=== PATIENT | male | born 1940 | race Hispanic/Latino ===

== ENCOUNTER 2018-07-06 22:15 | Observation (INO) | payer MEDICARE ==
[2018-07-06 22:32] VITALS: BMI 18.8
[2018-07-06 23:50] LABS: BASO # 0.04 K/mm3 (0.0-2.0); BASO % 0.5 % (0.0-3.0); EOS # 0.5 (0.0-0.7); EOS % 6.1 % (1.5-5.0); GRAN # 5.01 (1.4-6.5); GRAN % 66.7 % (50.0-68.0); HEMOGLOBIN 9.8 g/dL (14.0-18.0); LYMPH # 0.7 (1.2-3.4); LYMPH % 9.5 % (22.0-35.0); MEAN CELL VOLUME 85.3 fl (80.0-105.0); MEAN CORPUSCULAR HEMOGLOBIN 27.1 pg (25.0-35.0); MEAN CORPUSCULAR HGB CONC 31.8 g/dl (31.0-37.0); MEAN PLATELET VOLUME 10.2 fl (7.0-11.0); MONO # 1.3 (0.1-0.6); MONO % 17.2 % (1.0-6.0); RBC 3.61 10^6/uL (3.5-6.1); RED CELL DISTRIBUTION WIDTH 16.5 % (11.5-14.5); WHITE BLOOD COUNT 7.5 10^3/ul (4.5-11.0)
--- NOTE | 2018-07-06 23:52 | ED PDOC ---
Arrival/HPI <George Liu - Last Filed: 07/07/18 01:37> - History of Present Illness Time/Duration: 1-3 hours Symptom Onset: Sudden Symptom Course: Improving Context: Standing <Ivan Bauman - Last Filed: 07/07/18 02:38> - General Chief Complaint: Dizziness/Lightheaded Time Seen by Provider: 07/06/18 22:24 - History of Present Illness Narrative History of Present Illness (Text): 07/06/18 23:23 Mr Slater is a 78 male with PMHx significant for stage 4 lung cancer, CAD s/p stents 20 years ago, AFib who presents with sudden onset dizziness. The patient states that around 7pm he took two Dronabinol tablets which he has recently started taking occassionally for appetite stimulation. Shortly thereafter, around 8pm the patient began to feel dizzy and lightheaded while he was standing doing dishes in the kitchen. He denies feeling faint, syncopizing , falling, or memory loss. While these symptoms were occurring, the patient took his BP on a home monitor which was 170/100. He reports his systolic BP typically runs in the 100s-120s. He did take a baby aspirin upon noticing the elevated BP but did not take any blood pressure medications. The patient was brought to ED via EMS and his pressure in the ambulance had returned to baseline. The patient states that his dizziness gradually subsided and no longer feels dizzy or lightheaded, however he does admit to a feeling of widespread weakness. He recently started taking Dronabinol within the last month or so, but usually takes just one tablet at night. He denies feeling dizzy from the medication in the past. He receives weakly immunotherapy treatments at [facility] for lung CA. Pt does also state that he follows with a consulting networking engineer for his AFib and is rate controlled with beta blockers. Patient denies any headache, chest pains, palpitations, syncope, unilateral weakness or sensory loss. (Ivan Bauman) Past Medical History - Provider Review Nursing Documentation Reviewed: Yes - Infectious Disease Hx of Infectious Diseases: None - Cardiac Hx Pacemaker: No - Pulmonary Hx Lung Cancer: Yes (chemo) - Neurological Hx Paralysis: No - Hematological/Oncological Hx Blood Transfusions: No Hx Blood Transfusion Reaction: No - Musculoskeletal/Rheumatological Hx Musculoskeletal Disorders: No - Psychiatric Hx Emotional Abuse: No Hx Physical Abuse: No Hx Substance Use: No - Anesthesia Hx Anesthesia Reactions: No Hx Malignant Hyperthermia: No - Suicidal Assessment Feels Threatened In Home Enviroment: No <Ivan Bauman - Last Filed: 07/07/18 02:38> Family/Social History - Physician Review Nursing Documentation Reviewed: Yes Family/Social History: No Known Family HX Smoking Status: Former Smoker Hx Alcohol Use: Yes (1-2 GLASSES WINE WITH DINNER) Hx Substance Use: No <Ivan Bauman - Last Filed: 07/07/18 02:38> Allergies/Home Meds <George Liu - Last Filed: 07/07/18 01:37> <Ivan Bauman - Last Filed: 07/07/18 02:38> Allergies/Adverse Reactions: Allergies No Known Allergies Allergy (Verified 10/11/16 08:14) Home Medications: Home Meds Medication Instructions Recorded Confirmed Aspirin [Aspir 81] 81 mg PO DAILY 02/20/13 07/06/18 Atorvastatin [Lipitor] 40 mg PO DAILY 02/20/13 07/06/18 Ergocalciferol (Vitamin D2) 2,000 iu PO DAILY 08/17/16 07/06/18 [Vitamin D2] [place]-3/Dha/Epa/Fish Oil [Fish Oil] 1,000 mg PO DAILY 08/17/16 07/06/18 Sotalol [Betapace] 40 mg PO BID 08/17/16 07/06/18 Fluticasone/Vilanterol [Breo 1 each IH DAILY 08/21/16 07/06/18 Ellipta 100-25 Mcg INH] Omeprazole 40 mg PO DAILY 08/21/16 07/06/18 Ondansetron HCl [Zofran] 8 mg PO PRN PRN 10/11/16 07/06/18 Dronabinol [Marinol] 5 mg PO DAILY 07/06/18 07/06/18 Review of Systems - Physician Review All systems were reviewed & negative as marked: Yes - Review of Systems Constitutional: Other (+Appetite loss). absent: Fatigue, Fevers Eyes: absent: Vision Changes, Photophobia ENT: absent: Hearing Changes, Tinnitus Respiratory: absent: SOB, Cough Cardiovascular: absent: Chest Pain, Palpitations Gastrointestinal: absent: Abdominal Pain, Constipation, Diarrhea, Nausea, Vomiting Genitourinary Male: absent: Frequency, Hematuria Skin: absent: Rash, Pruritis Neurological: Dizziness. absent: Headache, Focal Weakness, Speech Changes, Facial Droop Psychiatric: absent: Anxiety, Depression <Ivan Bauman - Last Filed: 07/07/18 02:38> Physical Exam Vital Signs Reviewed: Yes Temperature: Afebrile Blood Pressure: Normal Pulse: Regular Appearance: Positive for: Ill-Appearing, Other (Frail) Pain Distress: None Mental Status: Positive for: Alert and Oriented X 3 - Systems Exam Head: Present: Atraumatic, Normocephalic Pupils: Present: PERRL. No: Sluggish, Non-Reactive, Pinpoint Extroacular Muscles: Present: EOMI Conjunctiva: Present: Normal. No: Injected, Icteric Mouth: Present: Moist Mucous Membranes, Normal Lips, Normal Tounge, Normal Teeth. No: Dry Nose (External): Present: Atraumatic. No: Abrasion, Contusion Neck: Present: Normal Range of Motion. No: JVD Respiratory/Chest: Present: Clear to Auscultation, Good Air Exchange. No: Respiratory Distress, Accessory Muscle Use, Wheezes, Rhonchi Cardiovascular: Present: Regular Rate and Rhythm, Normal S1, S2, Peripheal Pulses Present. No: Murmurs Abdomen: Present: Normal Bowel Sounds. No: Tenderness, Distention, Peritoneal Signs, Rebound, Guarding Upper Extremity: Present: Normal Inspection, NORMAL PULSES. No: Cyanosis, Edema Lower Extremity: Present: Normal Inspection, NORMAL PULSES. No: Edema Neurological: Present: GCS=15, CN II-XII Intact, Speech Normal, Motor Func Grossly Intact, Normal Sensory Function, Normal Cerebellar Funct, Memory Normal , Other (Normal finger to nose) Skin: Present: Pale. No: Diaphoretic, Erythematous, Laceration, Abscess Psychiatric: Present: Alert, Oriented x 3, Normal Insight, Normal Concentration <Ivan Bauman - Last Filed: 07/07/18 02:38> Vital Signs Temp Pulse Resp BP Pulse Ox 07/07/18 02:08 82 18 96 07/07/18 02:02 76 18 126/74 95 07/06/18 22:34 98.0 F 83 18 111/73 99 Medical Decision Making <George Liu - Last Filed: 07/07/18 01:37> - RAD Interpretation Sap Pi Architect: Radiologist - EKG Interpretation Interpreted by ED Physician: Yes <Ivan Bauman - Last Filed: 07/07/18 02:38> ED Course and Treatment: Impression: Pt seen and evaluated with medical records director. Aware and agree with HPI, clinical findings, plan, and management. Pt, whose past medical history includes stage 4 lung cancer, CAD s/p stents, and atrial fibrillation, presented for dizziness/ light-headedness and generalized weakness. Plan: -- CT Head w/o contrast -- EKG -- Chest X-ray -- Labs, cardiac enzymes -- Reassess and disposition 07/07/18 01:[address] Carey, who is aware and agrees with plan. Accepts pt in to his service. Pt will go to Telemetry observation for near-syncope and pneumonia. (George Liu) 1) Dizziness in Stage 4 Lung CA, hx AFib (DDx TIA/stroke vs metastatic dz vs medication SE): * CT Head w/o contrast * CXR * EKG * CBC w dif, CMP, PT/PTT, Cardiac enzymes * Continue clinical reassessment 07/07/18 00:13 2) Mild Hyperkalemia * Kayexalate 3g IV (Ivan Bauman) - Lab Interpretations Narrative Lab Interpretation (Text): 07/07/18 02:27 Potassium 5.7 (Ivan Bauman) Lab Results: 07/06/18 23:37 07/06/18 23:37 Lab Results 07/06/18 23:37: Sodium 142, Potassium 5.7 H*, Chloride 103, Carbon Dioxide 33, Anion Gap 13, BUN 34 H, Creatinine 1.8 H, Est GFR ( Amer) 44, Est GFR ( Non-Af Amer) 37, Random Glucose 107, Calcium 8.9, Total Bilirubin 0.3, AST 42, ALT 15, Alkaline Phosphatase 196 H, Lactate Dehydrogenase 1410 H, Total Creatine Kinase 35, Troponin I < 0.01, Total Protein 7.4, Albumin 3.8, Globulin 3.6, Albumin/Globulin Ratio 1.0 L 07/06/18 23:37: PT 12.1, INR 1.06, APTT 33.2 07/06/18 23:37: WBC 7.5 D, RBC 3.61, Hgb 9.8 L, Hct 30.8 L, MCV 85.3, MCH 27.1 , MCHC 31.8, RDW 16.5 H, Plt Count 319, MPV 10.2, Gran % 66.7, Lymph % (Auto) 9.5 L, [place] % (Auto) 17.2 H, Eos % (Auto) 6.1 H, Baso % (Auto) 0.5, Gran # 5.01 , Lymph # (Auto) 0.7 L, [place] # (Auto) 1.3 H, Eos # (Auto) 0.5, Baso # (Auto) 0.04 - RAD Interpretation Narrative RAD Interpretations (Text): 07/07/18 02:23 CT Head: No acute findings CXR: Volume loss and infiltrate in left lung base with a small left pleural effusion (Ivan Bauman) Radiology Orders: 07/07/18 23:17 HEAD W/O CONTRAST [CT] Stat CHEST PORTABLE [RAD] Stat - EKG Interpretation EKG Interpretation (Text): 07/07/18 02:26 Normal sinus rhythm, no ST or T changes, normal EKG (Ivan Bauman) - Medication Orders Current Medication Orders: Sodium Chloride (Sodium Chloride 0.9%) 1,000 mls @ 100 mls/hr IV .Q10H STA Stop: 07/07/18 11:35 Last Admin: 07/07/18 01:41 Dose: 100 mls/hr eMAR Start Stop Document 07/07/18 01:41 RD (Rec: 07/07/18 01:43 RD [id number]) Intravenous Solution Start Date 07/07/18 Start Time 01:43 Discontinued Medications Sodium Polystyrene Sulfonate (Kayexalate Susp) 30 gm PO STAT STA Stop: 07/07/18 00:41 Last Admin: 07/07/18 01:19 Dose: 30 gm Disposition/Present on Arrival - Present on Arrival Any Indicators Present on Arrival: No History of DVT/PE: No History of Uncontrolled Diabetes: No Urinary Catheter: No History of Decub. Ulcer: No - Disposition Have Diagnosis and Disposition been Completed?: Yes Disposition Time: 01:34 Patient Plan: Observation <George Liu - Last Filed: 07/07/18 01:37> - Present on Arrival History of DVT/PE: No History of Uncontrolled Diabetes: No Urinary Catheter: No History of Decub. Ulcer: No History Surgical Site Infection Following: CABG - Mediastinitis, None <Ivan Bauman - Last Filed: 07/07/18 02:38> - Disposition Diagnosis: Near syncope, Pneumonia Patient Problems: Current Active Problems Problem Status Onset Near syncope Acute Pneumonia Acute Condition: STABLE
[2018-07-06 23:54] LABS: INR 1.06; PARTIAL THROMBOPLASTIN TIME 33.2 Seconds (25.1-36.5); PROTHROMBIN TIME 12.1 SECONDS (9.4-12.5)
[2018-07-07 00:08] LABS: TROPONIN I < 0.01 ng/mL
[2018-07-07 00:27] LABS: ALBUMIN 3.8 g/dL (3.0-4.8); ALT/SGPT 15 U/L (7-56); AST/SGOT 42 U/L (17-59); BLOOD UREA NITROGEN 34 mg/dL (7-21); CALCIUM 8.9 mg/dL (8.4-10.5); GFR AFRICAN-AMERICAN 44; GFR NON-AFRICAN AMERICAN 37
[2018-07-07] MEDS ORDERED: Sod Polystyrene Sulf 15 gm/60 ml Susp PO STA (00:40)
[2018-07-07] MEDS ORDERED: Sodium Chloride 0.9% 1,000 ML IV STA (01:36)
[2018-07-07 06:39] VITALS: O2SAT 99
[2018-07-07 07:20] LABS: BASO # 0.04 K/mm3 (0.0-2.0); BASO % 0.5 % (0.0-3.0); EOS # 0.5 (0.0-0.7); EOS % 6.3 % (1.5-5.0); GRAN # 5.74 (1.4-6.5); GRAN % 68.5 % (50.0-68.0); HEMOGLOBIN 10.2 g/dL (14.0-18.0); LYMPH % 12.2 % (22.0-35.0); MEAN CELL VOLUME 85.3 fl (80.0-105.0); MEAN CORPUSCULAR HEMOGLOBIN 26.8 pg (25.0-35.0); MEAN CORPUSCULAR HGB CONC 31.4 g/dl (31.0-37.0); MEAN PLATELET VOLUME 10.3 fl (7.0-11.0); MONO # 1.1 (0.1-0.6); MONO % 12.5 % (1.0-6.0); RBC 3.81 10^6/uL (3.5-6.1); RED CELL DISTRIBUTION WIDTH 16.5 % (11.5-14.5); WHITE BLOOD COUNT 8.4 10^3/ul (4.5-11.0)
[2018-07-07 07:36] LABS: ALBUMIN 3.9 g/dL (3.0-4.8); CALCIUM 8.6 mg/dL (8.4-10.5)
--- NOTE | 2018-07-07 08:52 | CT ---
Date of service: 07/07/2018 PROCEDURE: CT HEAD WITHOUT CONTRAST. HISTORY: dizziness COMPARISON: None available. TECHNIQUE: Axial computed tomography images were obtained through the head/brain without intravenous contrast. Coronal and sagittal reconstructed images. Radiation dose: Total exam DLP = 828.09 mGy-cm. This CT exam was performed using one or more of the following dose reduction techniques: Automated exposure control, adjustment of the mA and/or kV according to patient size, and/or use of iterative reconstruction technique. FINDINGS: HEMORRHAGE: No intracranial hemorrhage. BRAIN: No mass effect or edema. No atrophy or chronic microvascular ischemic changes. VENTRICLES: Unremarkable. No hydrocephalus. CALVARIUM: Unremarkable. PARANASAL SINUSES: Unremarkable as visualized. No significant inflammatory changes. MASTOID AIR CELLS: Unremarkable as visualized. No inflammatory changes. OTHER FINDINGS: None. IMPRESSION: No acute intracranial abnormalities. No significant findings to account for the clinical presentation. Concordant results (preliminary interpretation) provided by [employer]. Procedure Completed: 00:07. Preliminary ([facility]) Report: Dictated and Authenticated: 00:50. Final Interpretation: 08:50.
--- NOTE | 2018-07-07 10:13 | CP.PCM.HP ---
<AmanCollette - Last Filed: 07/07/18 12:51> History of Present Illness - History of Present Illness History of Present Illness: PGY-[address] Carey Mr Slater, 78M, with PMHx of stage 4 lung cancer currently on Keytruda q3 weeks, CAD s/p stents 20 years ago, AFib not on anticoagulant, c/o sudden onset dizziness. Since keytruda therapy (last one last Saturday), pt complained of diarrhea, decreased appetite. Last night, around 7pm he took two Dronabinol tablets which he has recently started taking occassionally for appetite stimulation. Shortly thereafter, around 8pm the patient began to feel dizzy and lightheaded while he was standing doing dishes in the kitchen. He recently started taking Dronabinol within the last month or so, but usually takes just one tablet at night without any dizziness. He denies losing consciousness or falling. While these symptoms were occurring, the patient took his BP on a home monitor which was 170/100. He reports his systolic BP typically runs in the 100s-120s. He did take a baby aspirin upon noticing the elevated BP but did not take any blood pressure medications. The patient was brought to ED via EMS In the ED, pt states that his dizziness gradually subsided and no longer feels dizzy or lightheaded, however he does admit to a feeling of widespread weakness. VS: stable Lab: Hemoglobin 10.2; K 5.7; BUN 34/Cre 1.8; Alk 196; LDH 1410 CXR: New Left lower lobe infiltrate/L pleural effusion ROS - (+) diarrhea (+) general weakness Denies F/C, CP, headaches, loss of vision, palpitations, syncope, unilateral weakness or sensory loss. ED course: observation for near-syncope and pneumonia. PMH stage 4 lung cancer, on Keytruda q3 weeks, last one last ady CAD s/p 1 stent, last stent 20 years ago atrial fibrillation, not on anticoagulant Cataract b/l L ear hard of hearing Shingles 20 years ago BPH Unsteady gait PSH Tendon repair SH. Former smoker, 1-2 glasses wine with dinner. no substance All NKDA Med reviewed PMD Onc: Dr Irwin, [place], [place] Present on Admission - Present on Admission Any Indicators Present on Admission: No Past Patient History - Infectious Disease Hx of Infectious Diseases: None - Past Social History Smoking Status: Former Smoker - CARDIAC Hx Cardia Arrhythmia: Yes (afib) Hx Hypercholesterolemia: Yes - PULMONARY Hx Respiratory Disorders: No - NEUROLOGICAL Hx Paralysis: No - HEENT Hx Cataracts: Yes (B/L eyes) Hx Deafness: Yes (L ear) - ENDOCRINE/METABOLIC Hx Endocrine Disorders: No - HEMATOLOGICAL/ONCOLOGICAL Hx Cancer: Yes (Lung) Hx Chemotherapy: Yes Hx Shingles: Yes (20 years ago) - INTEGUMENTARY Hx Dermatological Problems: No - MUSCULOSKELETAL/RHEUMATOLOGICAL Hx Arthritis: Yes Hx Falls: No Hx Unsteady Gait: Yes - GENITOURINARY/GYNECOLOGICAL Hx Prostate Problems: Yes (Enlarged) - PSYCHIATRIC Hx Anxiety: Yes Hx Depression: Yes (slight) Hx Substance Use: No - SURGICAL HISTORY Hx Surgeries: Yes (Tendon Repair) Hx Coronary Stent: Yes (1X) - ANESTHESIA Hx Anesthesia Reactions: No Hx Malignant Hyperthermia: No Meds Allergies/Adverse Reactions: Allergies Allergy/AdvReac Type Severity Reaction Status Date / Time No Known Allergies Allergy Verified 10/11/16 08:14 Physical Exam - Constitutional Appears: No Acute Distress - Head Exam Head Exam: ATRAUMATIC, NORMAL INSPECTION, NORMOCEPHALIC - Eye Exam Eye Exam: EOMI, Normal appearance, PERRL. absent: Scleral icterus Pupil Exam: NORMAL ACCOMODATION - ENT Exam ENT Exam: Mucous Membranes Moist - Neck Exam Additional comments: supple - Respiratory Exam Respiratory Exam: Decreased Breath Sounds (b/l lung base: L > R), Clear to Auscultation Bilateral. absent: Rales, Rhonchi, Wheezes - Cardiovascular Exam Cardiovascular Exam: REGULAR RHYTHM, +S1, +S2 - GI/Abdominal Exam GI & Abdominal Exam: Normal Bowel Sounds, Soft. absent: Distended, Rigid, Tenderness - Extremities Exam Extremities exam: Positive for: normal capillary refill, pedal pulses present. Negative for: calf tenderness, pedal edema - Back Exam Back exam: absent: CVA tenderness (L), CVA tenderness (R) - Neurological Exam Neurological exam: Alert, Oriented x3 - Psychiatric Exam Psychiatric exam: Normal Affect, Normal Mood - Skin Skin Exam: Dry, Warm Results - Vital Signs Recent Vital Signs: Last Vital Signs Temp 97.8 F 07/07/18 06:00 Pulse 75 07/07/18 06:00 Resp 21 07/07/18 06:00 BP 118/71 07/07/18 06:00 Pulse Ox 99 07/07/18 06:00 - Labs Result Diagrams: 07/07/18 07:00 07/07/18 07:00 Labs: Laboratory Results - last 24 hr 07/07/18 07/07/18 07:00 07:00 WBC 8.4 RBC 3.81 Hgb 10.2 L Hct 32.5 L MCV 85.3 MCH 26.8 MCHC 31.4 RDW 16.5 H Plt Count 327 MPV 10.3 Gran % 68.5 H Lymph % (Auto) 12.2 L [place] % (Auto) 12.5 H Eos % (Auto) 6.3 H Baso % (Auto) 0.5 Gran # 5.74 Lymph # (Auto) 1.0 L [place] # (Auto) 1.1 H Eos # (Auto) 0.5 Baso # (Auto) 0.04 Sodium 144 Potassium 4.6 Chloride 104 Carbon Dioxide 31 Anion Gap 13 BUN 30 H Creatinine 1.5 Est GFR ( Amer) 55 Est GFR (Non-Af Amer) 45 Random Glucose 90 Calcium 8.6 Phosphorus 3.2 Magnesium 1.8 Total Bilirubin 0.4 AST 37 ALT 19 Alkaline Phosphatase 226 H Total Protein 7.6 Albumin 3.9 Globulin 3.8 Albumin/Globulin Ratio 1.0 L Assessment & Plan - Assessment and Plan (Free Text) Plan: Pre-syncope, possibly due to dehydration, medication side effect, orthostatic, electrolyte abnormality - dizziness and electrolyte andormality resolved - CT head: no significant findings - Orthostatic hypotension by DBP change in more than 10mmHg. Encouraged adequate hydration - advise do not take dronabinol more than 1 tablet at a time - exerccise fall precaution CAP pneumonia - CrCl around 30s. Will dose Vantin accordingly x 5 days. Take it with food. Follow up outpatient with primary care doctor. Dehydration possibly due to subacute diarrhea, decrease PO intake from decreased appetite - diarrhea likely side effect of medicine, doubt acute gastroenteritis - encourage PO intake with appropriate use of dronabinol - follow up with PMD and oncologist REFUGIO, pre-renal, evidenced by correct electrolyte abnormality and improved creatinine by IV hydration Stage 4 lung CA on Keytruda Will d/c home pending neurology clearance s/r/d/w Dr Carey <Obinna Carey S - Last Filed: 07/07/18 21:14> Results - Vital Signs Recent Vital Signs: Last Vital Signs Temp 98.6 F 07/07/18 17:42 Pulse 61 07/07/18 17:42 Resp 20 07/07/18 17:42 BP 104/66 07/07/18 17:42 Pulse Ox 99 07/07/18 06:00 - Labs Result Diagrams: 07/07/18 07:00 07/07/18 07:00 Labs: Laboratory Results - last 24 hr 07/07/18 07/07/18 07:00 07:00 WBC 8.4 RBC 3.81 Hgb 10.2 L Hct 32.5 L MCV 85.3 MCH 26.8 MCHC 31.4 RDW 16.5 H Plt Count 327 MPV 10.3 Gran % 68.5 H Lymph % (Auto) 12.2 L [place] % (Auto) 12.5 H Eos % (Auto) 6.3 H Baso % (Auto) 0.5 Gran # 5.74 Lymph # (Auto) 1.0 L [place] # (Auto) 1.1 H Eos # (Auto) 0.5 Baso # (Auto) 0.04 Sodium 144 Potassium 4.6 Chloride 104 Carbon Dioxide 31 Anion Gap 13 BUN 30 H Creatinine 1.5 Est GFR ( Amer) 55 Est GFR (Non-Af Amer) 45 Random Glucose 90 Calcium 8.6 Phosphorus 3.2 Magnesium 1.8 Total Bilirubin 0.4 AST 37 ALT 19 Alkaline Phosphatase 226 H Total Protein 7.6 Albumin 3.9 Globulin 3.8 Albumin/Globulin Ratio 1.0 L Assessment & Plan - Assessment and Plan (Free Text) Plan: Pt seen and examined. I have reviewed the note of the medical office assistant instructor and agree with it. I have discussed the assessment and plan with the resident. I have reviewed the patient's labs and medications. Pt had REFUGIO due to pre-renal. Pt had CXR with infiltrate but does not have much symptoms. He was hydrated and will be send home with Shira. He will f/u with PMD and oncology.
--- NOTE | 2018-07-07 10:55 | RAD ---
Date of service: 07/07/2018 HISTORY: Dizziness COMPARISON: 10/11/2016 FINDINGS: LUNGS: Left lower lobe infiltrate. Left upper lobe mass identified on prior chest radiographs is difficult to appreciate although there is persistent haziness in the left upper lobe. PLEURA: Left pleural effusion. CARDIOVASCULAR: Cardiomegaly. No evidence of acute, significant cardiovascular disease. OSSEOUS STRUCTURES: No significant abnormalities. VISUALIZED UPPER ABDOMEN: Normal. OTHER FINDINGS: None. IMPRESSION: New left lower lobe infiltrate/left pleural effusion. Findings not apparent on the prior study.
--- NOTE | 2018-07-07 11:29 | CARD ---
APPROVED REPORT Date of service: 07/07/2018 EKG Measurement Heart [id number] [id number] <Conclusion> Normal sinus rhythm NH Prolonged.
[2018-07-07 12:26] VITALS: RESP 20
--- NOTE | 2018-07-07 12:56 | CARD ---
APPROVED REPORT Date of service: 07/06/2018 EKG Measurement Heart [id number] <Conclusion> Normal sinus rhythm Normal ECG
[2018-07-07] MEDS ORDERED: Cefpodoxime (Vantin) 200 mg Tab PO SCH (13:00)
--- NOTE | 2018-07-07 14:13 | CON ---
Copied To: Art Alcantar MD Attending MD: Art Alcantar MD DATE: 07/07/2018 NEUROLOGY CONSULT CHIEF COMPLAINT: Dizziness, lightheadedness. HISTORY OF PRESENT ILLNESS: Mr. Slater is a 78-year-old man with past medical history of stage IV cancer, coronary artery disease, status post stent years ago, AFib, who had sudden onset of dizziness. He has been failure to thrive, deconditioned, and has poor appetite. He took shortly after he felt lightheaded while he was standing and doing the dishes, but he did not syncopize. He also checked his blood pressure, which is 170/100 and is tachycardic; therefore, came to the hospital for further evaluation. Currently, he got one dose of IV fluids and now he is feeling much better, no longer dizziness. Usually, his blood pressure is on the lower side at baseline. Currently, he is deconditioned from his underlying stage IV lung cancer. Otherwise, no focal weakness. He did have some hyperkalemia when he came in, which has been corrected and mild acute kidney injury. Currently, no headaches. No change in sense of vision, taste, or smell at this time. He is doing well. CAT scan of the head showed no acute intracranial abnormalities. REVIEW OF SYSTEMS: Fourteen-point review of systems is negative except as per the HPI. ALLERGIES: NO KNOWN DRUG ALLERGIES. PAST MEDICAL HISTORY: As above. SOCIAL HISTORY: No illicit drug use, smoking, or EtOH abuse at this time. MEDICATIONS: Reviewed by nurses' reconciliation sheet. LABORATORY DATA: Sodium is 144, potassium is 4.6, chloride of 104, carbon dioxide of 31, BUN of 30, creatinine 1.5, random glucose of 90. PHYSICAL EXAMINATION: VITAL SIGNS: Temperature 98, pulse rate of 66, blood pressure 114/66, respiratory rate of 20, oxygen saturation 99% by room air. GENERAL: The patient is sitting up in bed, in no acute distress. HEENT: Atraumatic, normocephalic. PERRLA. Extraocular muscles intact. NECK: Supple. No JVD. No adenopathy noted. LUNGS: Clear to auscultation. No adventitious sounds. HEART: S1, S2. Normal rate and rhythm. No murmurs, rubs, or gallops. ABDOMEN: Soft, nontender, and nondistended. Bowel sounds are present. EXTREMITIES: No clubbing. No cyanosis. Peripheral pulses 2+ felt bilaterally. NEUROLOGIC: The patient is alert and oriented to person, place, month, and year. Speech is fluent without any errors. Cranial nerves II through XII intact. Motor: Moves all extremities equally. Very deconditioned. Sensory: Decreased light touch and pinprick up to the calves bilaterally. Decreased vibration of the toes. DTRs are 2+ throughout. Coordination: [id number] intact. Toes downgoing bilaterally. No dysmetria noted. Gait is deferred for now. ASSESSMENT AND PLAN: This is a 78-year-old man with history of stage IV lung cancer; coronary artery disease, status post stent; atrial fibrillation, on aspirin who felt dizziness, lightheaded, and near syncopal event after taking and became tachycardic, also was hyperkalemic. His near syncope was secondary to medication effect to in addition to being failure to thrive and deconditioned as well as underlying hyperkalemia. At this time, no further neurological symptoms present. Neurologic exam showed no acute intracranial abnormality. CAT scan showed no abnormalities as well. He is clinically stable. Recommend IV hydration. Physical Therapy/Occupational Therapy assessment and hold off his for now. Thank you for this consult. He is clinically stable. Art Alcantar MD
[2018-07-07 17:43] VITALS: BP 104/66; PULSE 61; TEMP 98.6
--- NOTE | 2018-07-07 19:40 | CON ---
Copied To: Emmanuel Molina MD Attending MD: Emmanuel Molina MD DATE: 07/07/2018 INDICATIONS: Dizziness, lightheadedness, hyperkalemia. HISTORY OF PRESENT ILLNESS: This is a 78-year-old male known to me with admission yesterday through the emergency room when he reported dizziness, unsteadiness and found at home that his blood pressure was elevated. A week or so prior, he had felt that his blood pressure was elevated on his home machine and he saw Dr. Nye in the office at that time. Yesterday, he felt weak and lightheaded. He checked his blood pressure and found that it was again elevated. He came to the emergency room. He is found to have hyperkalemia. He was given Kayexalate. He was admitted to telemetry. This morning, he feels better. There is no dizziness, vertigo, chest pain, shortness of breath, orthopnea, PND, syncope, edema, claudication, fever, chills, cough, sputum production, hemoptysis, abdominal pain, nausea, vomiting, diarrhea, constipation or melena. PAST MEDICAL HISTORY: Notable for coronary artery disease with remote coronary intervention. In 2012, he had a cardiac catheterization which disclosed patent stent in the circumflex artery and moderate coronary artery disease. Medical therapy was advised at that time. Since then, he has developed lung cancer and has been under the care of oncologist at [facility]. He has been prescribed an appetite stimulant, dronabinol. He took that yesterday just prior to the onset of his symptoms. He believes that this medication may have caused some of the symptoms. He has received chemotherapy and more recently immunotherapy. MEDICATIONS AT THE TIME OF ADMISSION: Include aspirin, sotalol, Breo-Ellipta, Lipitor, omeprazole, vitamin D and Zofran. SOCIAL HISTORY: He lives at home with his . He is ambulatory. He does not smoke cigarettes currently. He does not drink alcohol significantly. He is retired. FAMILY HISTORY: Noncontributory. REVIEW OF SYSTEMS: A 10-point review of systems is otherwise unremarkable except as noted above. PHYSICAL EXAMINATION GENERAL: He is an elderly male, lying in bed on telemetry, in no acute distress. VITAL SIGNS: Notable for sinus rhythm at 72 beats per minute. He is afebrile. Blood pressure 118/71, respirations 18-21, O2 sat 96%-99% on room air and nasal cannula. HEENT: Reveals no neck vein distention, thyromegaly, or carotid bruits. Mucous membranes moist. Conjunctivae pink. NECK: Supple. LUNGS: Lungs arteaga; diminished breath sounds at the bases, scattered rhonchi. HEART: Reveals normal first and second heart sounds without murmur, gallop or rub. ABDOMEN: Soft. Bowel sounds present. No mass, organomegaly, tenderness, rebound, or guarding. No CVA tenderness, no palpable abdominal aortic aneurysm. EXTREMITIES: Reveals no cyanosis, clubbing, or edema. NEUROLOGIC: He is awake, alert, and oriented. PSYCHIATRIC: Normal as to mood and affect. SKIN: Warm and dry. No rash or cellulitis. LABORATORY AND IMAGING: Chest x-ray is a portable study, it was not read yet, it appears to be an effusion in the left side and evidence of a left upper lobe cancer. There is no evidence of congestive heart failure. The CT scan of the head was done, the report is not in the system. White count normal, hemoglobin 10.2, hematocrit 32.5, platelet count normal. PT, INR, PTT unremarkable. Electrolytes notable for potassium of 5.7, repeat 4.6 this morning. BUN 34, repeat 30. Creatinine 1.8, repeat 1.5. Blood sugar 107, repeat 90. Magnesium 1.8. LFTs unremarkable except for an elevated alkaline phosphatase at 226. CK of 35, troponin less than 0.01. IMPRESSION: Nohemy Pope is a 78-year-old man admitted with dizziness and hypertension, hyperkalemia in the setting of dronabinol use for appetite stimulation in the setting of immunotherapy for lung cancer. He has a history of coronary artery disease, remote coronary intervention and chronic obstructive pulmonary disease. PLAN: At this time, he is admitted to telemetry. He was given Kayexalate and his potassium level has normalized. His symptoms have resolved, although he still feels weak. There is no dizziness or vertigo this morning. There is no chest pain. We await the interpretation of the CT scan and the chest x-ray. I will get an EKG. I will continue his aspirin, sotalol and Lipitor. He is having a neurologic evaluation. I will check postural vital signs. I will discuss this case with Dr. Nye and Dr. Carey. He can be out of bed to a chair this morning and ambulate later on with assistance provided that his dizziness has resolved. He will avoid using dronabinol for now as it may have played a role in his current symptoms. I will follow along with you and make additional recommendations based on his clinical course. Emmanuel Molina MD [facility]
== END 2018-07-07 19:20 | disposition home or self-care (01) ==
LOC: ED 22:15 → ERH 07-07 01:34 → 2RNO 07-07 02:18
PROVIDERS: ADMIT Internal Medicine Nephrology; ATTEND Internal Medicine Nephrology
DX: J18.9 Pneumonia, unspecified organism (principal); C34.90 Malignant neoplasm of unspecified part of unspecified bronchus or lung; E87.5 Hyperkalemia; N17.9 Acute kidney failure, unspecified; I10 Essential (primary) hypertension; E78.00 Pure hypercholesterolemia, unspecified; H91.92 Unspecified hearing loss, left ear; I25.10 Atherosclerotic heart disease of native coronary artery without angina pectoris; I48.91 Unspecified atrial fibrillation; J44.0 Chronic obstructive pulmonary disease with (acute) lower respiratory infection; N40.0 Benign prostatic hyperplasia without lower urinary tract symptoms; R62.7 Adult failure to thrive; Z79.82 Long term (current) use of aspirin; Z95.5 Presence of coronary angioplasty implant and graft; Z87.891 Personal history of nicotine dependence; R74.8 Abnormal levels of other serum enzymes; R55 Syncope and collapse
CPT/HCPCS: 36415; 70450; 71045; 80053; 82550; 82948; 83615; 83735; 84100; 84484; 85025; 85610; 85730; 93005; 97116; 97162; 99285; G0378; G8978; G8979; G8980; J0694; J7030

== ENCOUNTER 2019-01-23 17:19 | Inpatient (IN) | payer MEDICARE ==
--- NOTE | 2019-01-23 17:48 | ED PDOC ---
Arrival/HPI - General Chief Complaint: Shortness Of Breath Time Seen by Provider: 01/23/19 17:39 Historian: Patient, Spouse - History of Present Illness Narrative History of Present Illness (Text): 01/23/19 17:47 A 78 year old male, whose past medical history includes stage 4 lung cancer, CAD s/p stents 20 years ago, AFib, presents to the emergency department accompanied by spouse complaining of shortness of breath for the past day. Patient's family reports patient has been increasingly tired with a decreased appetite fever, chills, and a productive cough. Family notes patient is currently taking chemo pills and has had no surgery or radiation. Family reports they called the primary doctors who urged patient to go to the emergency room. Patient denies any chest pain, headache, dizziness, or any other complaints. PMD: Dr. Nye Time/Duration: 24 hours Symptom Onset: Gradual Symptom Course: Unchanged Activities at Onset: Light Context: Home Past Medical History - Provider Review Nursing Documentation Reviewed: Yes - Infectious Disease Hx of Infectious Diseases: None - Cardiac Hx Cardiac Arrhythmia: Yes (afib) - Pulmonary Hx Respiratory Disorders: Yes Other/Comment: Lung CA - Neurological Hx Paralysis: No - HEENT Hx Cataracts: Yes (B/L eyes) Hx Deafness: Yes (L ear) - Endocrine/Metabolic Hx Endocrine Disorders: No - Hematological/Oncological Hx Cancer: Yes (Lung) Hx Chemotherapy: Yes Hx Shingles: Yes (20 years ago) - Integumentary Hx Dermatological Disorder: No - Musculoskeletal/Rheumatological Hx Arthritis: Yes Hx Falls: No Hx Unsteady Gait: Yes - Genitourinary/Gynecological Hx Prostate Problems: Yes (Enlarged) - Psychiatric Hx Anxiety: Yes Hx Depression: Yes (slight) Hx Substance Use: No - Surgical History Hx Coronary Stent: Yes (1X) - Anesthesia Hx Anesthesia Reactions: No Hx Malignant Hyperthermia: No - Suicidal Assessment Feels Threatened In Home Enviroment: No Family/Social History - Physician Review Nursing Documentation Reviewed: Yes Family/Social History: No Known Family HX Smoking Status: Former Smoker Hx Alcohol Use: No Hx Substance Use: No Allergies/Home Meds Allergies/Adverse Reactions: Allergies No Known Allergies Allergy (Verified 10/11/16 08:14) Home Medications: Home Meds Medication Instructions Recorded Confirmed Aspirin [Aspir 81] 81 mg PO DAILY 02/20/13 07/06/18 Atorvastatin [Lipitor] 40 mg PO DAILY 02/20/13 07/06/18 Ergocalciferol (Vitamin D2) 2,000 iu PO DAILY 08/17/16 07/06/18 [Vitamin D2] [place]-3/Dha/Epa/Fish Oil [Fish Oil 1,000 mg PO DAILY 08/17/16 07/06/18 Dr 500 mg Softgel] Sotalol [Betapace] 40 mg PO BID 08/17/16 07/06/18 Fluticasone/Vilanterol [Breo 1 each IH DAILY 08/21/16 07/06/18 Ellipta 100-25 Mcg INH] Omeprazole 40 mg PO DAILY 08/21/16 07/06/18 Ondansetron HCl [Zofran] 8 mg PO PRN PRN 10/11/16 07/06/18 Dronabinol [Marinol] 5 mg PO DAILY 07/06/18 07/06/18 Review of Systems - Physician Review All systems were reviewed & negative as marked: Yes - Review of Systems Constitutional: Fevers, Other (chills) Respiratory: SOB, Cough, Sputum Cardiovascular: absent: Chest Pain Gastrointestinal: Appetite Changes (decreased appetite) Neurological: absent: Dizziness, Focal Weakness Physical Exam Vital Signs Reviewed: Yes Temperature: Febrile Appearance: Positive for: Cachectic Mental Status: Positive for: Alert and Oriented X 3 - Systems Exam Head: Present: Atraumatic, Normocephalic Pupils: Present: PERRL Extroacular Muscles: Present: EOMI Conjunctiva: Present: Normal Mouth: Present: Moist Mucous Membranes Respiratory/Chest: Present: Clear to Auscultation, Good Air Exchange, Other (catheter to bilteral lower chest wall with overlying bandage) Cardiovascular: Present: Regular Rate and Rhythm, Normal S1, S2. No: Murmurs Abdomen: No: Tenderness, Distention, Peritoneal Signs Upper Extremity: Present: Normal Inspection. No: Cyanosis, Edema Lower Extremity: Present: Edema (pitting edema to bilateral lower extremity) Neurological: Present: GCS=15, CN II-XII Intact, Speech Normal Skin: Present: Warm, Pale Psychiatric: Present: Alert, Oriented x 3, Normal Insight, Normal Concentration Medical Decision Making ED Course and Treatment: 01/23/19 17:48 Impression: 78 year old male presents to the emergency department accompanied by spouse complaining of shortness of breath. Plan: -- VBG -- EKG -- Labs -- CBC -- Chest X-ray -- Blood culture -- Urine culture -- Rapid flu test -- Urinalysis -- Reassess and disposition Prior Visits: Notes and results from previous visits were reviewed. Progress Notes: 01/23/19 19:[address] jose. patient to be admitted for fever and dyspnea, cxr shows a developing right pleural effusion. with the pleurx catheter in place i feel it is prudent to empirically tx for infectious pleural effusion. - RAD Interpretation Narrative RAD Interpretations (Text): 01/23/19 19:43 cxr my read: right pleural effusion which appears new when compared to previous cxr, chronic left pleural effusion appears unchanged. Vibration Engineer: ED Physician - EKG Interpretation EKG Interpretation (Text): 01/23/19 17:34 EKG: Ordered, reviewed, and independently interpreted the EKG. Rate : 81 BPM Rhythm : NSR Interpretation : Normal QRS, normal axis, no Stt wave abnormality Interpreted by ED Physician: Yes Disposition/Present on Arrival - Present on Arrival Any Indicators Present on Arrival: No History of DVT/PE: No History of Uncontrolled Diabetes: No Urinary Catheter: No History of Decub. Ulcer: No History Surgical Site Infection Following: None - Disposition Have Diagnosis and Disposition been Completed?: Yes Diagnosis: Fever, Pleural effusion Disposition: HOSPITALIZED Disposition Time: 20:01 Patient Plan: Admission Condition: STABLE Referrals: Jemal Nye MD [Primary Care Provider] - Follow up with primary Forms: [employer] ([place])
[2019-01-23 18:09] LABS: VENOUS BLOOD GAS PO2 23 mm/Hg (30-55)
[2019-01-23 18:23] LABS: BASO # 0.01 {null, K/mm3} (0.0-2.0); BASO % 0.1 % (0.0-3.0); EOS % 0.3 % (1.5-5.0); HEMOGLOBIN 9.4 g/dL (14.0-18.0); LYMPH # 1.1 (1.2-3.4); LYMPH % 7.8 % (22.0-35.0); MEAN CELL VOLUME 97.4 fl (80.0-105.0); MEAN CORPUSCULAR HEMOGLOBIN 27.3 pg (25.0-35.0); MEAN CORPUSCULAR HGB CONC 28.1 g/dl (31.0-37.0); MEAN PLATELET VOLUME 10.8 fl (7.0-11.0); MONO # 1.3 (0.1-0.6); MONO % 9.2 % (1.0-6.0); RBC 3.44 {null, 10^6/uL} (3.5-6.1); RED CELL DISTRIBUTION WIDTH 14.9 % (11.5-14.5); WHITE BLOOD COUNT 14.4 {null, 10^3/uL} (4.5-11.0)
[2019-01-23 18:31] LABS: ALB/GLOB RATIO 0.8 (1.1-1.8); ALBUMIN 2.8 g/dL (3.0-4.8); CALCIUM 8.1 mg/dL (8.4-10.5)
[2019-01-23 18:59] LABS: PH,URINE 6.5 (4.7-8.0); URINE BILIRUBIN NEGATIVE (NEGATIVE); URINE BLOOD SMALL (NEGATIVE); URINE GLUCOSE (UA) NEGATIVE (NEGATIVE); URINE LEUKOCYTE ESTERASE NEGATIVE Leu/uL (NEGATIVE); URINE PROTEIN 30 mg/dL (<30 mg/dL)
[2019-01-23 19:00] LABS: URINE APPEARANCE CLEAR (CLEAR); URINE COLOR YELLOW (YELLOW)
[2019-01-23] MEDS ORDERED: Vancomycin 500 mg Inj IVPB STA (20:01)
[2019-01-23] MEDS ORDERED: Cefepime IV 2 gm in NS 2 GM/100 ML BAG IVPB STA (20:01)
[2019-01-23] MEDS ORDERED: Vancomycin 1gm in NS 250ml 1 GM/250 ML BAG IVPB STA (20:07)
[2019-01-23] MEDS ORDERED: Meropenem IV 1 gm in NS 1 GM/50 ML BAG IVPB SCH (23:48)
--- NOTE | 2019-01-24 09:03 | RAD ---
HISTORY: pneumonia COMPARISON: Chest x-ray performed 07/07/18 TECHNIQUE: Chest PA and lateral FINDINGS: LUNGS: Hyperinflation may be seen in the setting of COPD. Increased lucencies especially within the bilateral upper lung arteaga compatible with underlying emphysema. Small bilateral pleural effusions (left greater than right) with associated consolidations. Biapical pleural thickening. Please note that chest x-ray has limited sensitivity for the detection of pulmonary masses. CARDIOVASCULAR: Cardiomegaly. Atherosclerotic calcifications the aorta. OSSEOUS STRUCTURES: Osseous demineralization. Degenerative changes. VISUALIZED UPPER ABDOMEN: Unremarkable. OTHER FINDINGS: None. IMPRESSION: COPD/emphysema. Bilateral pleural effusions and associated consolidations. Biapical pleural thickening. Cardiomegaly.
[2019-01-24 09:55] LABS: BASO # 0.01 {null, K/mm3} (0.0-2.0); BASO % 0.1 % (0.0-3.0); EOS # 0.1 (0.0-0.7); EOS % 1.1 % (1.5-5.0); HEMOGLOBIN 7.8 g/dL (14.0-18.0); LYMPH # 0.9 (1.2-3.4); LYMPH % 10.5 % (22.0-35.0); MEAN CELL VOLUME 98.2 fl (80.0-105.0); MEAN CORPUSCULAR HEMOGLOBIN 28.1 pg (25.0-35.0); MEAN CORPUSCULAR HGB CONC 28.6 g/dl (31.0-37.0); MEAN PLATELET VOLUME 10.4 fl (7.0-11.0); MONO # 1.2 (0.1-0.6); MONO % 13.5 % (1.0-6.0); RBC 2.78 {null, 10^6/uL} (3.5-6.1); RED CELL DISTRIBUTION WIDTH 14.9 % (11.5-14.5); WHITE BLOOD COUNT 8.8 {null, 10^3/uL} (4.5-11.0)
[2019-01-24] MEDS: Iron Complex Polysacch 150mg Cap PO SCH ×2 (10:16→17:40)
[2019-01-24] MEDS: Metoprolol Succinate 25 mg XL Tab PO SCH (10:17)
[2019-01-24] MEDS: POLYETHYLENE GLYCOL 3350 17 GM/Dose PACKET PO SCH ×2 (10:19→18:47)
[2019-01-24 10:32] LABS: ALB/GLOB RATIO 0.7 (1.1-1.8); ALBUMIN 2.4 g/dL (3.0-4.8); CALCIUM 7.1 mg/dL (8.4-10.5)
--- NOTE | 2019-01-24 14:51 | CON ---
DATE OF CONSULTATION: 01/24/2019 The patient is seen earlier today. The patient's is present at the bedside. CHIEF COMPLAINT: Shortness of breath x1 day duration. HISTORY OF PRESENT ILLNESS: This is a 78-year-old male with stage IV lung cancer, coronary artery disease, history of zoster 20 years ago, arthritis, BPH, anxiety and depression, who was admitted with weakness, fevers, chills, shortness of breath, productive cough, fatigue, and poor appetite. REVIEW OF SYSTEMS: The 12-point review of systems is performed. PAST MEDICAL HISTORY: Significant for stage IV lung cancer, coronary artery disease, zoster, arthritis, BPH, anxiety, and depression. PAST SURGICAL HISTORY: Significant for cardiac stent placement 20 years ago. The patient had PleurX drainage tubes this time, and no intravascular devices as per the patient's . ALLERGIES: THE PATIENT HAS NO KNOWN ALLERGIES. MEDICATIONS: Medications at home include iron, folic acid, Lipitor, omeprazole, omega. PHYSICAL EXAMINATION: GENERAL: The patient is in bed with no acute distress, appearing chronically ill. He appears weak and cachectic and end-stage. VITAL SIGNS: Temperature of 102.3; heart rate of 65, and however it was up to 78; respiratory rate of 22; blood pressure is 120/50. HEENT: Examination of HEENT, there is temporal wasting. NECK: Supple. LUNGS: Have decreased breath sounds. HEART: Normal S1, S2. ABDOMEN: Soft, nontender. No rebound or guarding. LABORATORY DATA: Laboratory examination reveals a white count of 14,400, hemoglobin of 9, platelets of 384. Chemistries revealed a BUN of 37, creatinine of 1.8. Urinalysis is noted and influenza is negative. The patient had a chest x-ray and consolidation is present. Emergency room chart is reviewed. ASSESSMENT AND PLAN: This is a 78-year-old male with end-stage stage IV lung cancer, coronary artery disease, admitted with fever of 102.3, tachycardia, leukocytosis, positive infiltrates, and a change in the creatinine from 1.5 to 1.8. 1. Severe sepsis with healthcare-associated pneumonia with acute kidney injury with change of creatinine from 1.5 to 1.8. We will treat the patient with meropenem and doxycycline. We will order the urine for Legionella antigen, procalcitonin level, blood, urine, sputum culture, MRSA screen, and we will make further recommendations upon availability of initial results. We will follow closely with you. Jean Fuller MD
--- NOTE | 2019-01-24 16:05 | HP ---
DATE OF EXAM: 01/24/2019 CHIEF COMPLAINT AND HISTORY OF PRESENT ILLNESS: This is a 78-year-old male who is coming to the hospital because of fever. The patient has a history of stage IV lung CA. He has been getting treatment at [facility]. He has history of coronary artery disease with stents. He has atrial fibrillation, is not on anticoagulation. The patient states he has bilateral indwelling catheters for his pleural effusion. He was not feeling well yesterday and came in for further evaluation. The patient was accompanied by his . They were complaining of more shortness of breath. He had called [facility] and they had advised him to go to the closest ER. The patient has been having difficulty in eating. He has decrease in his appetite. The patient is complaining of a productive cough. He has no abdominal pain, no back pain, no dysuria or frequency. No nocturia. No dizziness. No diplopia. No dysarthria. He does have difficulty with walking because of weakness and fatigue. REVIEW OF SYSTEMS: All other review of symptoms are within normal limits except what was mentioned. PAST MEDICAL HISTORY: 1. Stage IV lung CA. 2. Coronary artery disease, status post stent x20 years. 3. Atrial fibrillation not on anticoagulation. 4. Left-sided hearing impairment. 5. Shingles. 6. BPH. PAST SURGICAL HISTORY: Tendon repair. SOCIAL HISTORY: He has a former smoker. He drinks one to two glasses of wine with dinner. ALLERGIES: NO KNOWN ALLERGIES. MEDICATIONS: He is on omeprazole, aspirin, iron, folic acid, Lipitor, atorvastatin, Colace, and metoprolol. PHYSICAL EXAMINATION: VITAL SIGNS: Temperature is 97.5, pulse is 65, blood pressure 124/52, respirations 20, O2 saturations 100%. GENERAL: The patient is lying in bed, comfortable, and in no acute distress. The patient is malnourished. He has bitemporal wasting. HEENT: Atraumatic and normocephalic. Anicteric sclerae. Moist mucosa. [place] conjunctivae. No oral lesions. NECK: No JVD, anterior and posterior adenopathy, thyromegaly, or bruits. CARDIOVASCULAR: S1 and S2 regular. No murmurs, rubs or gallops. LUNGS: Clear to auscultation bilaterally. No wheezes, rales, or rhonchi. ABDOMEN: Bowel sounds are positive. Soft, nontender and nondistended. No hepatosplenomegaly. No rebound and no guarding EXTREMITIES: No cyanosis, clubbing, or edema. NEUROLOGIC: No facial asymmetry. Tongue is midline. No uvula deviation. Power is 5/5 upper extremities and lower extremities. Sensation intact in upper extremities and lower extremities. PSYCHIATRIC: He is awake, alert and oriented x3. No anxiety or depression. He has normal affect. GENITOURINARY: No CVA tenderness. VASCULAR: 2+ pulses in the carotid pulses and pedal pulses. SKIN: No erythema or nodules SPINE: Shows normal curvature. LABORATORY DATA: White count of 14.4, hemoglobin 9.4, platelet count is 384. The patient has a lactate of 1.2. Chemistry shows a sodium 139, potassium is 5.5, creatinine is 1.8, AST and ALT is 99 and 50. Urine shows blood small nitrates and negative bilirubin, negative serology shows influenza is negative. Chest x-ray done shows COPD and emphysema. There is bilateral pleural effusions and associated consolidation. EKG shows heart rate of 81, it is normal access, there is no ST-T changes. QTC is 385. ASSESSMENT: 1. Hospital-acquired pneumonia. 2. Stage IV lung cancer. 3. Coronary artery disease. 4. Left-sided hearing impairment. 5. Benign prostatic hyperplasia. 6. Anemia, chronic. 7. Hyperkalemia. 8. Acute kidney injury. 9. Constipation. PLAN: The patient is going to be admitted to the hospital. Blood cultures and urine cultures have been drawn. The patient is going to need ID and pulmonary evaluation. He gets his PleurX catheter drained every other day. I got the nurse to drain the catheters. The patient is on folic acid and going to continue iron. The patient was given IV antibiotics with cefepime and meropenem as well as vancomycin. I asked ID to evaluate the patient. The patient is on regular diet. I did speak to the patient's at the bedside. The patient was given a dose of Kayexalate yesterday. We will get a repeat blood work today. The patient most likely need MiraLax, because he had constipation for the last 6 days. Obinna Carey MD [facility] # [phone]
[2019-01-24] MEDS: Meropenem IV 1 gm in NS 1 GM/50 ML BAG IVPB SCH (18:46)
[2019-01-25] MEDS: Meropenem IV 1 gm in NS 1 GM/50 ML BAG IVPB SCH ×2 (06:32→18:37)
--- NOTE | 2019-01-25 07:49 | CARD ---
APPROVED REPORT Date of service: 01/23/2019 EKG Measurement Heart [id number] <Conclusion> Normal sinus rhythm Normal ECG
[2019-01-25] MEDS: Iron Complex Polysacch 150mg Cap PO SCH (09:41)
[2019-01-25] MEDS: POLYETHYLENE GLYCOL 3350 17 GM/Dose PACKET PO SCH ×3 (09:41→18:35)
[2019-01-25] MEDS: Metoprolol Succinate 25 mg XL Tab PO SCH (09:42)
--- NOTE | 2019-01-25 17:50 | PN ---
DATE: 01/25/2019 PULMONARY PROGRESS NOTE. SUBJECTIVE: The patient was seen and examined at bedside. He was admitted to the hospital because of fever and a history of stage IV lung cancer. He had bilateral PleurX catheters put in and a suspicion was that, maybe, one of the catheters was infected. PHYSICAL EXAMINATION: GENERAL: Today on physical examination, he looks and feels better. HEAD, EARS, NOSE, AND THROAT: Within normal limits. NECK: Supple with no jugular vein distentions. CARDIOVASCULAR: S1 and S2, no S3, regular. PULMONARY: Diminished breath sounds, right more than left. No wheezing. GASTROINTESTINAL: Soft and nontender. No organomegaly. : Within normal limits EXTREMITIES: No pedal edema, no cyanosis. SKIN: No acute skin rashes. NEUROLOGIC: No focal deficits. ASSESSMENT: Hospital-acquired pneumonia, stage IV lung cancer, bilateral pleural effusion, and anemia. PLAN: We will continue with intermittent drainage of PleurX bags for pleural effusions. The patient is already started on antibiotics. Cultures are pending. We will continue following p.r.n. Aleksandr Gibbs MD MTDD
--- NOTE | 2019-01-25 18:59 | PN ---
DATE: 01/25/2019 SUBJECTIVE: The patient is a 78-year-old, seen and examined, lying in bed, and seems to be comfortable. The patient's by the bedside and he wants to take shower. The patient came in because of spiking fever. He does have history of stage IV lung CA, history of coronary artery disease, and chronic AFib. OBJECTIVE: GENERAL: He is awake, alert, oriented, and able to communicate. VITAL SIGNS: He is afebrile, pulse 79, respirations 18, and blood pressure 113/54. LUNGS: Bilateral diffusely decreased breath sound in upper lung region, decreased at bases. HEART: S1 and S2 audible. ABDOMEN: Soft and nontender. No rebound. No guarding. NEUROLOGIC: He is awake and alert. Able to communicate and able to ambulate. LABORATORY DATA: His procalcitonin 0.17. Flu test is negative. Blood culture and urine cultures are negative. X-ray chest shows COPD and emphysema, bilateral pleural effusion, and biapical pleural thickening. ASSESSMENT: 1. Severe etiology unknown yet. 2. Stage IV carcinoma of lung. 3. History of hypertension. 4. Chronic anemia. 5. Hyperlipidemia. 6. Chronic atrial fibrillation. 7. Coronary artery disease, status post angioplasty multiple years ago. PLAN: Currently, the patient is on doxycycline. He is on aspirin. He is getting iron infusion. He is on meropenem. He is on stool softener. We will follow up his CBC and CMP in a.m. Castro Lu MD
[2019-01-26] MEDS: Meropenem IV 1 gm in NS 1 GM/50 ML BAG IVPB SCH ×2 (05:25→18:29)
[2019-01-26 07:08] LABS: BASO # 0.03 {null, K/mm3} (0.0-2.0); BASO % 0.5 % (0.0-3.0); EOS # 0.3 (0.0-0.7); HEMOGLOBIN 8.7 g/dL (14.0-18.0); LYMPH % 17.7 % (22.0-35.0); MEAN CELL VOLUME 96.6 fl (80.0-105.0); MEAN CORPUSCULAR HEMOGLOBIN 27.1 pg (25.0-35.0); MEAN CORPUSCULAR HGB CONC 28.1 g/dl (31.0-37.0); MEAN PLATELET VOLUME 10.4 fl (7.0-11.0); MONO # 0.7 (0.1-0.6); MONO % 12.8 % (1.0-6.0); RBC 3.21 {null, 10^6/uL} (3.5-6.1); WHITE BLOOD COUNT 5.6 {null, 10^3/uL} (4.5-11.0)
[2019-01-26 08:08] LABS: ALB/GLOB RATIO 0.8 (1.1-1.8); ALBUMIN 2.3 g/dL (3.0-4.8); ALT/SGPT 46 U/L (7-56); AST/SGOT 82 U/L (17-59); BLOOD UREA NITROGEN 36 mg/dL (7-21); CALCIUM 7.6 mg/dL (8.4-10.5); GFR NON-AFRICAN AMERICAN 39
--- NOTE | 2019-01-26 08:08 | PN ---
DATE: 01/26/2019 SUBJECTIVE: The patient appears very comfortable this morning. He is not short of breath at rest. PHYSICAL EXAMINATION: VITAL SIGNS: Temperature is 98.6, pulse 81, respirations 18/20, blood pressure 99/56. Oxygen saturation on nasal cannula is 96%. HEENT: Normocephalic, atraumatic. No JVD. CARDIOVASCULAR: Positive S1, S2. No S3 gallop. LUNGS: Decreased breath sounds at the bases. Otherwise clear. EXTREMITIES: Mild edema. No cyanosis, no clubbing. Calves are nontender to palpation. GASTROINTESTINAL: Abdomen is soft, nontender and nondistended. Bowel sounds are positive. SKIN: No acute rash. NEUROLOGIC: Exam limited at the present time. IMPRESSION: 1. Sepsis syndrome. 2. End-stage/extensive lung cancer. 3. Small bilateral pleural effusions. 4. Coronary artery disease. 5. Anemia. PLAN: The patient appears quite comfortable this morning. He is not short of breath at rest. He does state to feeling much better overall. On physical exam, there is no significant bronchospasm noted.. In addition, there is no significant alveolar-arterial gradient. I would continue with the antibiotic coverage as per Infectious Disease. Input by Dr. Fuller is noted. Temperatures have fully resolved. The leukocytosis has also fully resolved. Clinical status of the patient is certainly improved - compared to the initial presentation. However, given the above, the future status/prognosis for this elderly patient remains poor. All are aware. I will discuss the above with the attending physician. Srinath Steward MD [facility]
--- NOTE | 2019-01-26 09:01 | PN ---
DATE: 01/25/2019 SUBJECTIVE: The patient is in bed, in no acute distress, nontoxic. OBJECTIVE: VITAL SIGNS: On exam, temperature is 98, blood pressure is 90/40, respiratory rate of 18, heart rate of 70. HEENT: Unremarkable. NECK: Supple. LUNGS: Have decreased breath sounds. HEART: Normal S1, S2. ABDOMEN: Soft. LABORATORY EXAMINATION: Reveals the blood cultures are negative. Urine culture has multiple species, probable contamination. White count is down to 8.8 now. Chemistries are noted. Creatinine is 1.6. Procalcitonin 0.17. Urinalysis is noted. Influenza is negative. Review of orders reveals the patient to be on meropenem and doxycycline. ASSESSMENT AND PLAN: This is a 78-year-old male with an end-stage, stage IV lung cancer with coronary artery disease, admitted with fever, tachycardia, infiltrates. 1. Severe sepsis with healthcare-associated pneumonia with acute kidney injury, on meropenem, doxycycline on day #2, will complete 4-7 days of antibiotics. Thus far the cultures are negative. Waiting for further workup. We will follow with you. Procalcitonin is also negative. Jean Fuller MD
[2019-01-26] MEDS: POLYETHYLENE GLYCOL 3350 17 GM/Dose PACKET PO SCH ×2 (09:02→18:30)
[2019-01-26] MEDS: Metoprolol Succinate 25 mg XL Tab PO SCH (09:04)
[2019-01-26] MEDS: Iron Complex Polysacch 150mg Cap PO SCH (09:10)
[2019-01-26 09:11] LABS: IRON 28 ug/dL (45-180)
--- NOTE | 2019-01-26 09:19 | CON ---
DATE: 01/24/2019 PULMONARY CONSULTATION NOTE HISTORY OF PRESENT ILLNESS: The patient was seen and examined at bedside. We were asked by Dr. Carey, assistant associate professor to evaluate this 78-year-old man who was admitted with a chief complaint of shortness of breath as well as fever. He was started on doxycycline and meropenem in the emergency room. The fever and fatigue was of 2 days duration and shortness of breath was of 1 day duration. He coughed slightly and brought a scant amount of sputum. He denied hemoptysis, denied chest pain. He has [address] and they were drained 2 days ago. The right sided yielded 400 mL. PAST MEDICAL HISTORY: Positive for lung cancer, hearing loss, chemotherapy for cancer, history of arthritis, prostate enlargement, and history of depression. HOME MEDICATIONS: Reviewed as per MAR. He is on Marinol 5 mg daily for pain control. He is on Breo Ellipta as an inhaler. ALLERGIES: NO KNOWN ALLERGIES. SOCIAL HISTORY: He is a nonsmoker, nondrinker. Never used illicit drug, however, he is a former smoker. FAMILY HISTORY: No inherited diseases. REVIEW OF SYSTEMS: Conducted by reviewing all sources. CARDIOVASCULAR: Denied chest pain, denied palpitations. PULMONARY: See history of present illness. GASTROINTESTINAL: No history of vomiting or diarrhea. CONSTITUTIONAL: History of fever and fatigue for 24 hours. All other systems negative. PHYSICAL EXAMINATION VITAL SIGNS: As follows; his temperature is 98.4 currently, pulse 88, respirations 20, blood pressure is 116/75, oxygen saturation is 93% on nasal cannula. HEENT: Head, normocephalic and atraumatic. NECK: Supple with no jugular vein distensions. RESPIRATORY: Diminished breath sounds at both lung bases, right more than left. CARDIOVASCULAR: S1, S2. No S3, regular. GASTROINTESTINAL: Soft, nontender. No organomegaly. No tenderness. : Within normal limits EXTREMITIES: No pedal edema. NEUROLOGIC: No focal deficits. SKIN: No acute skin rash. ASSESSMENT AND PLAN: The patient was admitted with 1 day of fever and fatigue. He has bilateral PleurX catheters in place, which are drained periodically. He was admitted with elevated white count of 14,000 and negative influenza testing; therefore, the infection is presumed bacterial and possibly infected PleurX catheter or pleural effusion, although inter-current causes are suspected as well, we will review further the chest x-ray and may need a CT of chest to evaluate for possible post-obstructive pneumonitis. I have personally reviewed his chest x-ray, which appears to show only minimal effusion on the left, a small effusion on the right. It also shows some hyperinflation consistent with chronic obstructive pulmonary disease. We will follow closely on current treatment as outlined above. Aleksandr Gibbs MD [facility]
[2019-01-26 09:20] LABS: % IRON SATURATION 19 % (20-55); TOTAL IRON BINDING CAPACITY 145 ug/dL (261-462)
--- NOTE | 2019-01-26 12:54 | PN ---
DATE: 01/26/2019 SUBJECTIVE: The patient is in bed in no acute distress, nontoxic. The patient seen earlier, still very weak. PHYSICAL EXAMINATION: VITAL SIGNS: Temperature is 98, blood pressure is 100/60, respiratory rate 20, heart rate of 81. HEENT: Unremarkable. NECK: Supple. LUNGS: Have decreased breath sounds. HEART: Normal S1, S2. ABDOMEN: Soft, nontender. LABORATORY EXAMINATION: Reveals a white count of 5.6, hemoglobin of 8. BUN of 36, creatinine of 1.7 and the patient's procalcitonin 0.17. Urinalysis is noted. Serology is reviewed. Urine for Legionella antigen is negative. Influenza is negative. Microbiology reveals yeast in the sputum most likely colonizer. MRSA screen is not detected. Blood culture is negative. Urine culture is negative. ASSESSMENT AND PLAN: This is a 78-year-old male who was seen earlier today in 568, bed 1 with severe sepsis, healthcare-associated pneumonia with acute kidney injury on meropenem and doxycycline day #3. We will complete 4-7 days of antibiotics. We will change the doxycycline to p.o. Dr. Steward's progress note from today is appreciated and Dr. Lu's note from yesterday is also appreciated. Overall prognosis is quite poor. Jean Fuller MD
--- NOTE | 2019-01-26 14:42 | CP.PCM.PN ---
<Tommy Baez - Last Filed: 01/26/19 14:38> Subjective - Date & Time of Evaluation Date of Evaluation: 01/26/19 Time of Evaluation: 07:40 - Subjective Subjective: Medicine progress note: Patient seen and examined at bedside. No acute events overnight. states that his sob and cough has improved. No fevers. Denies any complaints. 12 point ROS performed and negative other than stated above Objective - Vital Signs/Intake and Output Vital Signs (last 24 hours): Temp Pulse Resp BP Pulse Ox 98 F 81 20 98/54 L 96 01/26/19 06:00 01/26/19 06:00 01/26/19 06:00 01/26/19 09:04 01/26/19 06:00 Intake and Output: 01/26/19 01/26/19 06:59 18:59 Intake Total 160 360 Balance 160 360 - Medications Medications: Current Medications Aspirin (Ecotrin) 81 mg PO HS [facility] Last Admin: 01/25/19 21:14 Dose: 81 mg Atorvastatin Calcium (Lipitor) 40 mg PO HS [facility] Last Admin: 01/25/19 21:14 Dose: 40 mg Docusate Sodium (Colace) 100 mg PO DAILY PRN PRN Reason: Constipation Last Admin: 01/25/19 09:41 Dose: 100 mg Doxycycline Hyclate (Doryx) 100 mg PO Q12 [facility]; Protocol Stop: 01/31/19 22:01 Folic Acid (Folic Acid) 1 mg PO DAILY [facility] Last Admin: 01/26/19 09:02 Dose: 1 mg Meropenem (Merrem Iv 1 Gm Premix) 1 gm in 50 mls @ 12.5 mls/hr IVPB Q12H [facility]; Protocol Stop: 02/01/19 18:01 Last Admin: 01/26/19 05:25 Dose: 12.5 mls/hr Metoprolol Succinate (Toprol Xl) 25 mg PO DAILY [facility] Last Admin: 01/26/19 09:04 Dose: Not Given Polyethylene Glycol (Miralax) 17 gm PO BID [facility] Last Admin: 01/26/19 09:02 Dose: Not Given Polysaccharide Iron Complex (Ferrex-150) 150 mg PO DAILY [facility] Last Admin: 01/26/19 09:10 Dose: 150 mg - Labs Labs: 01/26/19 06:40 01/26/19 06:40 - Constitutional Appears: No Acute Distress - Head Exam Head Exam: ATRAUMATIC, NORMOCEPHALIC - Eye Exam Eye Exam: EOMI - ENT Exam ENT Exam: Mucous Membranes Moist - Respiratory Exam Respiratory Exam: Clear to Ausculation Bilateral - Cardiovascular Exam Cardiovascular Exam: REGULAR RHYTHM, +S1, +S2 - GI/Abdominal Exam GI & Abdominal Exam: Soft. absent: Distended, Guarding, Tenderness Additional comments: pleur x cath in place - Extremities Exam Extremities Exam: absent: Calf Tenderness, Pedal Edema - Neurological Exam Neurological Exam: Alert, Awake, Oriented x3 - Psychiatric Exam Psychiatric exam: Normal Mood - Skin Skin Exam: Dry, Warm Assessment and Plan - Assessment and Plan (Free Text) Assessment: 1. Severe sepsis, with healthcare associated pneumonia 2. Acute on chronic kidney injury 3. Hyperkalemia, now resolved 4. Stage IV lung cancer, bilateral Pleurx catheter 5. Coronary artery disease 6. Atrial fibrillation not on anticoagulation 7. BPH 8. History of shingles 9. Anemia, iron def Continue with meropenem and doxycycline for his healthcare associated pneumonia. Infectious disease consulted follow-up recommendations. Patient's procalcitonin was negative. Follow-up further septic workup. Influenza and Legionella were negative. For his acute kidney injury we will continue to monitor creatinine, today 1.7. For his CAD continue aspirin, BB and statin. Follow-up pulmonary consult and recommendations for his history of stage IV lung cancer , follow-up further management of the Pleurx catheters. For his afib continue Metoprolol. His BPH has been stable at this time we will continue to monitor. Cont Colace and MiraLAX for his constipation. For his anemia continue with Ferrex. Continue with daily labs. Regular diet. Continue to monitor for any changes. Case and plan was reviewed and discussed with Dr. Carey. <Obinna Carey - Last Filed: 01/26/19 17:21> Objective - Vital Signs/Intake and Output Vital Signs (last 24 hours): Temp Pulse Resp BP Pulse Ox 98.3 F 79 20 127/73 97 01/26/19 14:00 01/26/19 14:00 01/26/19 14:00 01/26/19 14:00 01/26/19 14:00 Intake and Output: 01/26/19 01/26/19 06:59 18:59 Intake Total 160 360 Output Total 1000 Balance 160 -640 - Medications Medications: Current Medications Aspirin (Ecotrin) 81 mg PO HS [facility] Last Admin: 01/25/19 21:14 Dose: 81 mg Atorvastatin Calcium (Lipitor) 40 mg PO HS [facility] Last Admin: 01/25/19 21:14 Dose: 40 mg Docusate Sodium (Colace) 100 mg PO DAILY PRN PRN Reason: Constipation Last Admin: 01/25/19 09:41 Dose: 100 mg Doxycycline Hyclate (Doryx) 100 mg PO Q12 [facility]; Protocol Stop: 01/31/19 22:01 Folic Acid (Folic Acid) 1 mg PO DAILY [facility] Last Admin: 01/26/19 09:02 Dose: 1 mg Meropenem (Merrem Iv 1 Gm Premix) 1 gm in 50 mls @ 12.5 mls/hr IVPB Q12H [facility]; Protocol Stop: 02/01/19 18:01 Last Admin: 01/26/19 05:25 Dose: 12.5 mls/hr Metoprolol Succinate (Toprol Xl) 25 mg PO DAILY [facility] Last Admin: 01/26/19 09:04 Dose: Not Given Polyethylene Glycol (Miralax) 17 gm PO BID [facility] Last Admin: 01/26/19 09:02 Dose: Not Given Polysaccharide Iron Complex (Ferrex-150) 150 mg PO DAILY [facility] Last Admin: 01/26/19 09:10 Dose: 150 mg - Labs Labs: 01/26/19 06:40 01/26/19 06:40 Assessment and Plan - Assessment and Plan (Free Text) Assessment: Pt seen and examined by me. I have reviewed the note of the medical receptionist assistant and I agree with it. I have discussed the assessment and plan with the resident. I have reviewed the medications and the last labs.
--- NOTE | 2019-01-26 22:09 | PN ---
DATE: 01/26/2019 The patient was seen and examined. I do agree with the note of the medical staffing coordinator. The patient has a severe sepsis secondary to healthcare-associated pneumonia. He is feeling better. His cough and congestion has improved. He has no fevers. The patient has bilateral PleurX catheters that will need to be drained today. He has a history of lung cancer and has been followed by [facility]. The patient has coronary artery disease that is stable. He has atrial fibrillation but is not on anticoagulation. He is on metoprolol. He has a BPH. He is on iron for his anemia. He is on Colace . The patient has iron-deficiency. He is asking about going home. I did advise him to wait until tomorrow, so he at least four days of antibiotics. He is eating better. His pain is controlled. He is being followed by infectious disease. He is using Lipitor for his dyslipidemia. He is on doxycycline for antibiotics as well as meropenem. Obinna Carey MD
[2019-01-27] MEDS: Meropenem IV 1 gm in NS 1 GM/50 ML BAG IVPB SCH (05:54)
--- NOTE | 2019-01-27 08:27 | PN ---
DATE: 01/27/2019 PULMONARY NOTE SUBJECTIVE: The patient appears very comfortable this morning. He is not short of breath at rest. PHYSICAL EXAMINATION VITAL SIGNS: (Last noted in the computer): Temperature is 97.8, pulse 75, respirations 19, blood pressure 127/60 and oxygen saturation on room air is 99%. HEENT: Normocephalic and atraumatic. No JVD. CARDIOVASCULAR: Positive S1 and S2. No S3 gallop. LUNGS: Decreased breath sounds at the bases. Otherwise clear. EXTREMITIES: Mild edema. No cyanosis. No clubbing. Calves are nontender to palpation. GI: Abdomen is soft, nontender and nondistended. Bowel sounds are positive. SKIN: No acute rash. NEUROLOGIC: Exam limited at the present time. IMPRESSION: 1. Sepsis syndrome. 2. End-stage/extensive lung cancer. 3. Small bilateral pleural effusions. 4. Coronary artery disease. 5. Anemia. PLAN: The patient appears very comfortable this morning. He is not short of breath at rest. He does state to feeling much, much better overall. On physical exam, there is no significant bronchospasm noted. In addition, there is no significant alveolar-arterial gradient. I would continue with the antibiotic coverage as per Infectious Disease. Input by Dr. Fuller is noted. The temperatures have fully resolved. The leukocytosis has also fully resolved. Clinical status of the patient is significantly improved - compared to the initial presentation. The patient is followed at [facility] for his lung cancer. He is also seen by my partner, Dr. Jacinto, as an outpatient. Unfortunately, the future status/prognosis for this patient remains very guarded at best/poor. The patient is for discharge in the very near future. I will follow up on this patient again as requested. Srinath Steward MD [facility]
[2019-01-27 08:28] VITALS: BP 99/62; PULSE 77; RESP 16; TEMP 97; O2SAT 98
--- NOTE | 2019-01-27 10:01 | CP.PCM.DIS ---
<Tommy Baez - Last Filed: 01/27/19 10:02> Provider - Provider Date of Admission: 01/23/19 20:02 Attending physician: Obinna Carey MD Primary care physician: Jemal Nye MD Consults: 01/23/19 21:35 Consult [Physician Consult] Routine Comment: Consulting Provider: Jean Fuller Consulting Physician: Jean Fuller Reason for Consult: pneumonia 01/23/19 21:36 Consult [Physician Consult] Routine Comment: lung ca Consulting Provider: Srinath Steward Consulting Physician: Srinath Steward Reason for Consult: lung ca Time Spent in preparation of Discharge (in minutes): 45 Hospital Course - Lab Results Lab Results: Micro Results 01/23/19 17:55 Blood-Venous Blood Culture - Preliminary NO GROWTH AFTER 3 DAYS 01/23/19 17:15 Blood-Venous Blood Culture - Preliminary NO GROWTH AFTER 3 DAYS 01/24/19 18:53 Naris MRSA Culture (Admit) - Final MRSA NOT DETECTED 01/24/19 21:35 Sputum Gram Stain - Final 01/24/19 21:35 Sputum Sputum Culture - Preliminary Yeast Species 01/23/19 18:44 Urine,Clean Catch Urine Culture - Final <10,000 CFU/ML. MULTIPLE SPECIES. PROBABLE CONTAMINATION. Most Recent Lab Values WBC 5.6 10^3/uL (4.5-11.0) D 01/26/19 06:40 RBC 3.21 10^6/uL (3.5-6.1) L 01/26/19 06:40 Hgb 8.7 g/dL (14.0-18.0) L 01/26/19 06:40 Hct 31.0 % (42.0-52.0) L 01/26/19 06:40 MCV 96.6 fl (80.0-105.0) 01/26/19 06:40 MCH 27.1 pg (25.0-35.0) 01/26/19 06:40 MCHC 28.1 g/dl (31.0-37.0) L 01/26/19 06:40 RDW 15.0 % (11.5-14.5) H 01/26/19 06:40 Plt Count 360 10^3/uL (120.0-450.0) 01/26/19 06:40 MPV 10.4 fl (7.0-11.0) 01/26/19 06:40 Neut % (Auto) 64.0 % (50.0-68.0) 01/26/19 06:40 Lymph % (Auto) 17.7 % (22.0-35.0) L 01/26/19 06:40 [place] % (Auto) 12.8 % (1.0-6.0) H 01/26/19 06:40 Eos % (Auto) 5.0 % (1.5-5.0) 01/26/19 06:40 Baso % (Auto) 0.5 % (0.0-3.0) 01/26/19 06:40 Lymph # (Auto) 1.0 (1.2-3.4) L 01/26/19 06:40 [place] # (Auto) 0.7 (0.1-0.6) H 01/26/19 06:40 Eos # (Auto) 0.3 (0.0-0.7) 01/26/19 06:40 Baso # (Auto) 0.03 K/mm3 (0.0-2.0) 01/26/19 06:40 Absolute Neuts (auto) 3.55 (1.4-6.5) 01/26/19 06:40 pO2 23 mm/Hg (30-55) L 01/23/19 17:58 VBG pH 7.30 (7.32-7.43) L 01/23/19 17:58 VBG pCO2 91.0 (40-60) H* 01/23/19 17:58 VBG HCO3 44.8 mmol/l (21-28) H 01/23/19 17:58 VBG Total CO2 47.6 mmol.L (22-28) H 01/23/19 17:58 VBG O2 Sat (Calc) 43.4 % (40-65) 01/23/19 17:58 VBG Base Excess 14.0 mmol/L (0.0-2.0) H 01/23/19 17:58 VBG Potassium 5.5 mmol/L (3.6-5.2) H 01/23/19 17:58 Sodium 138.0 mmol/L (132-148) 01/23/19 17:58 Chloride 99.0 mmol/L (98-107) 01/23/19 17:58 Glucose 107 mg/dl (75-110) 01/23/19 17:58 Lactate 1.2 mmol/L (0.7-2.1) 01/23/19 17:58 FiO2 21.0 % 01/23/19 17:58 Blood Gas Comments Cv 01/23/19 17:58 Crit Value Called To Larissa kc rn 01/23/19 17:58 Crit Value Called By Della 01/23/19 17:58 Blood Gas Notified Time 1807 01/23/19 17:58 Sodium 138 mmol/L (132-148) 01/26/19 06:40 Potassium 4.8 mmol/L (3.6-5.0) 01/26/19 06:40 Chloride 97 mmol/L (98-107) L 01/26/19 06:40 Carbon Dioxide > 40 mmol/L (21-33) H 01/26/19 06:40 Anion Gap 6 (10-20) L 01/26/19 06:40 BUN 36 mg/dL (7-21) H 01/26/19 06:40 Creatinine 1.7 mg/dl (0.8-1.5) H 01/26/19 06:40 Est GFR ( Amer) 47 01/26/19 06:40 Est GFR (Non-Af Amer) 39 01/26/19 06:40 Random Glucose 79 mg/dL (70-110) 01/26/19 06:40 Calcium 7.6 mg/dL (8.4-10.5) L 01/26/19 06:40 Magnesium 1.9 mg/dL (1.7-2.2) 01/23/19 17:55 Iron 28 ug/dL (45-180) L 01/26/19 08:20 TIBC 145 ug/dL (261-462) L 01/26/19 08:20 % Saturation 19 % (20-55) L 01/26/19 08:20 Ferritin 616.0 ng/mL 01/26/19 06:40 Total Bilirubin 0.3 mg/dL (0.2-1.3) 01/26/19 06:40 AST 82 U/L (17-59) H 01/26/19 06:40 ALT 46 U/L (7-56) 01/26/19 06:40 Alkaline Phosphatase 82 U/L (38-126) 01/26/19 06:40 Total Protein 5.3 g/dL (5.8-8.3) L 01/26/19 06:40 Albumin 2.3 g/dL (3.0-4.8) L 01/26/19 06:40 Globulin 3.0 gm/dL 01/26/19 06:40 Albumin/Globulin Ratio 0.8 (1.1-1.8) L 01/26/19 06:40 Procalcitonin 0.17 NG/ML (0.19-0.49) L 01/23/19 17:55 Venous Blood Potassium 5.5 mmol/L (3.6-5.2) H 01/23/19 17:58 Urine Color Yellow (YELLOW) 01/23/19 18:44 Urine Appearance Clear (CLEAR) 01/23/19 18:44 Urine pH 6.5 (4.7-8.0) 01/23/19 18:44 Ur Specific [place] 1.015 (1.005-1.035) 01/23/19 18:44 Urine Protein 30 mg/dL (<30 mg/dL) H 01/23/19 18:44 Urine Glucose (UA) Negative mg/dL (NEGATIVE) 01/23/19 18:44 Urine Ketones Negative mg/dL (NEGATIVE) 01/23/19 18:44 Urine Blood Small (NEGATIVE) H 01/23/19 18:44 Urine Nitrate Negative (NEGATIVE) 01/23/19 18:44 Urine Bilirubin Negative (NEGATIVE) 01/23/19 18:44 Urine Urobilinogen 1.0 E.U./dL (<1 E.U./dL) H 01/23/19 18:44 Ur Leukocyte Esterase Negative Kristy/uL (NEGATIVE) 01/23/19 18:44 Urine RBC 10 - 15 /hpf (0-2) H 01/23/19 18:44 Urine WBC 5 - 10 /hpf (0-6) H 01/23/19 18:44 Ur Epithelial Cells 6 - 8 /hpf (0-5) H 01/23/19 18:44 Influenza Typ A,B (EIA) Negative for flu a/b (NEGATIVE) 01/23/19 17:55 Ur L.pneumophila Ag Negative (NEGATIVE) 01/24/19 21:35 - Hospital Course Hospital Course: 78-year-old male with past medical history of stage IV lung cancer with bilateral Pleurx catheters, CAD with stent placement, atrial fibrillation not on anticoagulation, shingles, BPH presents with fever, shortness of breath, and cough. In the emergency room basic lab work was performed. Patient had a low WBC of 14, and hyperkalemic 5.5. Patient also with REFUGIO with Cr 1.8. His EKG s howed heart rate 81 normal sinus rhythm. Chest x-ray showed COPD emphysema, bilateral pleural effusions and associated consolidation, biapical pleural thickening, cardiomegaly. At this time patient was admitted for severe sepsis and healthcare associated pneumonia and was started on meropenem and doxycycline by infectious disease. Hyperkalemia resolved. Pulmonary was consulted for the recommendations as well. Patient's fever and cough improved. Today the patient states that he is feeling much better. He denies any further episodes of fever, cough and states that his shortness of breath has much improved. At this time patient will be discharged to go home with 4 days of doxycycline. Patient has a appointment tomorrow for CT chest and [facility], and an appointment with oncologist on February 02. All his questions were answered. No other complaints 1. Severe sepsis, with healthcare associated pneumonia 2. Acute on chronic kidney injury 3. Hyperkalemia, now resolved 4. Stage IV lung cancer, bilateral Pleurx catheter 5. Coronary artery disease 6. Atrial fibrillation not on anticoagulation 7. BPH 8. History of shingles 9. Anemia, iron def Discharge Exam - Head Exam Head Exam: ATRAUMATIC, NORMOCEPHALIC - Eye Exam Eye Exam: EOMI, PERRL - Respiratory Exam Respiratory Exam: Clear to PA & Lateral. absent: Rales, Rhonchi, Wheezes Additional comments: Bilateral Pleurx catheters in place - Cardiovascular Exam Cardiovascular Exam: REGULAR RHYTHM, +S1, +S2 - GI/Abdominal Exam GI & Abdominal Exam: Normal Bowel Sounds, Soft. absent: Tenderness - Neurological Exam Neurological exam: Alert, CN II-XII Intact - Psychiatric Exam Psychiatric exam: Normal Mood - Skin Skin Exam: Dry, Normal Color Discharge Plan - Discharge Medications Prescriptions: Doxycycline Hyclate [Doryx] 100 mg PO Q12 #8 cap - Follow Up Plan Condition: IMPROVED Disposition: HOME/ ROUTINE Patient education suggested?: Yes Instructions: Pneumonia in Adults, Fever of Unknown Origin, Smoking: Not Just Harmful to Your Lungs and Heart Additional Instructions: Follow-up with your PMD within 3 days Follow-up with your oncology appointment in [facility] on February 02. If your symptoms recur come back to the emergency room Continue with doxycycline twice per day for 4 days Continue your other medications as prescribed Referrals: Jemal Nye MD [Primary Care Provider] - <Obinna Carey - Last Filed: 01/27/19 16:56> Provider - Provider Date of Admission: 01/23/19 20:02 Attending physician: Obinna Carey MD Primary care physician: Jemal Nye MD Consults: 01/23/19 21:35 Consult [Physician Consult] Routine Comment: Consulting Provider: Jean Fuller Consulting Physician: Jean Fuller Reason for Consult: pneumonia 01/23/19 21:36 Consult [Physician Consult] Routine Comment: lung ca Consulting Provider: Srinath Steward Consulting Physician: Srinath Steward Reason for Consult: lung ca Hospital Course - Lab Results Lab Results: Micro Results 01/24/19 21:35 Sputum Gram Stain - Final 01/24/19 21:35 Sputum Sputum Culture - Preliminary Staphylococcus Aureus Yeast Species 01/23/19 17:55 Blood-Venous Blood Culture - Preliminary NO GROWTH AFTER 3 DAYS 01/23/19 17:15 Blood-Venous Blood Culture - Preliminary NO GROWTH AFTER 3 DAYS 01/24/19 18:53 Naris MRSA Culture (Admit) - Final MRSA NOT DETECTED 01/23/19 18:44 Urine,Clean Catch Urine Culture - Final <10,000 CFU/ML. MULTIPLE SPECIES. PROBABLE CONTAMINATION. Most Recent Lab Values WBC 5.6 10^3/uL (4.5-11.0) D 01/26/19 06:40 RBC 3.21 10^6/uL (3.5-6.1) L 01/26/19 06:40 Hgb 8.7 g/dL (14.0-18.0) L 01/26/19 06:40 Hct 31.0 % (42.0-52.0) L 01/26/19 06:40 MCV 96.6 fl (80.0-105.0) 01/26/19 06:40 MCH 27.1 pg (25.0-35.0) 01/26/19 06:40 MCHC 28.1 g/dl (31.0-37.0) L 01/26/19 06:40 RDW 15.0 % (11.5-14.5) H 01/26/19 06:40 Plt Count 360 10^3/uL (120.0-450.0) 01/26/19 06:40 MPV 10.4 fl (7.0-11.0) 01/26/19 06:40 Neut % (Auto) 64.0 % (50.0-68.0) 01/26/19 06:40 Lymph % (Auto) 17.7 % (22.0-35.0) L 01/26/19 06:40 [place] % (Auto) 12.8 % (1.0-6.0) H 01/26/19 06:40 Eos % (Auto) 5.0 % (1.5-5.0) 01/26/19 06:40 Baso % (Auto) 0.5 % (0.0-3.0) 01/26/19 06:40 Lymph # (Auto) 1.0 (1.2-3.4) L 01/26/19 06:40 [place] # (Auto) 0.7 (0.1-0.6) H 01/26/19 06:40 Eos # (Auto) 0.3 (0.0-0.7) 01/26/19 06:40 Baso # (Auto) 0.03 K/mm3 (0.0-2.0) 01/26/19 06:40 Absolute Neuts (auto) 3.55 (1.4-6.5) 01/26/19 06:40 pO2 23 mm/Hg (30-55) L 01/23/19 17:58 VBG pH 7.30 (7.32-7.43) L 01/23/19 17:58 VBG pCO2 91.0 (40-60) H* 01/23/19 17:58 VBG HCO3 44.8 mmol/l (21-28) H 01/23/19 17:58 VBG Total CO2 47.6 mmol.L (22-28) H 01/23/19 17:58 VBG O2 Sat (Calc) 43.4 % (40-65) 01/23/19 17:58 VBG Base Excess 14.0 mmol/L (0.0-2.0) H 01/23/19 17:58 VBG Potassium 5.5 mmol/L (3.6-5.2) H 01/23/19 17:58 Sodium 138.0 mmol/L (132-148) 01/23/19 17:58 Chloride 99.0 mmol/L (98-107) 01/23/19 17:58 Glucose 107 mg/dl (75-110) 01/23/19 17:58 Lactate 1.2 mmol/L (0.7-2.1) 01/23/19 17:58 FiO2 21.0 % 01/23/19 17:58 Blood Gas Comments Cv 01/23/19 17:58 Crit Value Called To Larissa kc rn 01/23/19 17:58 Crit Value Called By Della 01/23/19 17:58 Blood Gas Notified Time 1807 01/23/19 17:58 Sodium 138 mmol/L (132-148) 01/26/19 06:40 Potassium 4.8 mmol/L (3.6-5.0) 01/26/19 06:40 Chloride 97 mmol/L (98-107) L 01/26/19 06:40 Carbon Dioxide > 40 mmol/L (21-33) H 01/26/19 06:40 Anion Gap 6 (10-20) L 01/26/19 06:40 BUN 36 mg/dL (7-21) H 01/26/19 06:40 Creatinine 1.7 mg/dl (0.8-1.5) H 01/26/19 06:40 Est GFR ( Amer) 47 01/26/19 06:40 Est GFR (Non-Af Amer) 39 01/26/19 06:40 Random Glucose 79 mg/dL (70-110) 01/26/19 06:40 Calcium 7.6 mg/dL (8.4-10.5) L 01/26/19 06:40 Magnesium 1.9 mg/dL (1.7-2.2) 01/23/19 17:55 Iron 28 ug/dL (45-180) L 01/26/19 08:20 TIBC 145 ug/dL (261-462) L 01/26/19 08:20 % Saturation 19 % (20-55) L 01/26/19 08:20 Ferritin 616.0 ng/mL 01/26/19 06:40 Total Bilirubin 0.3 mg/dL (0.2-1.3) 01/26/19 06:40 AST 82 U/L (17-59) H 01/26/19 06:40 ALT 46 U/L (7-56) 01/26/19 06:40 Alkaline Phosphatase 82 U/L (38-126) 01/26/19 06:40 Total Protein 5.3 g/dL (5.8-8.3) L 01/26/19 06:40 Albumin 2.3 g/dL (3.0-4.8) L 01/26/19 06:40 Globulin 3.0 gm/dL 01/26/19 06:40 Albumin/Globulin Ratio 0.8 (1.1-1.8) L 01/26/19 06:40 Procalcitonin 0.17 NG/ML (0.19-0.49) L 01/23/19 17:55 Venous Blood Potassium 5.5 mmol/L (3.6-5.2) H 01/23/19 17:58 Urine Color Yellow (YELLOW) 01/23/19 18:44 Urine Appearance Clear (CLEAR) 01/23/19 18:44 Urine pH 6.5 (4.7-8.0) 01/23/19 18:44 Ur Specific [place] 1.015 (1.005-1.035) 01/23/19 18:44 Urine Protein 30 mg/dL (<30 mg/dL) H 01/23/19 18:44 Urine Glucose (UA) Negative mg/dL (NEGATIVE) 01/23/19 18:44 Urine Ketones Negative mg/dL (NEGATIVE) 01/23/19 18:44 Urine Blood Small (NEGATIVE) H 01/23/19 18:44 Urine Nitrate Negative (NEGATIVE) 01/23/19 18:44 Urine Bilirubin Negative (NEGATIVE) 01/23/19 18:44 Urine Urobilinogen 1.0 E.U./dL (<1 E.U./dL) H 01/23/19 18:44 Ur Leukocyte Esterase Negative Kristy/uL (NEGATIVE) 01/23/19 18:44 Urine RBC 10 - 15 /hpf (0-2) H 01/23/19 18:44 Urine WBC 5 - 10 /hpf (0-6) H 01/23/19 18:44 Ur Epithelial Cells 6 - 8 /hpf (0-5) H 01/23/19 18:44 Influenza Typ A,B (EIA) Negative for flu a/b (NEGATIVE) 01/23/19 17:55 Ur L.pneumophila Ag Negative (NEGATIVE) 01/24/19 21:35 - Hospital Course Hospital Course: Pt seen and examined by me. I have reviewed the note of the medical pathology teacher and I agree with it. I have discussed the assessment and plan with the resident. I have reviewed the medications and the last labs.
[2019-01-27] MEDS: POLYETHYLENE GLYCOL 3350 17 GM/Dose PACKET PO SCH (11:12)
[2019-01-27] MEDS: Iron Complex Polysacch 150mg Cap PO SCH (11:19)
[2019-01-27] MEDS: Metoprolol Succinate 25 mg XL Tab PO SCH (11:21)
--- NOTE | 2019-01-27 15:48 | PN ---
DATE: 01/27/2019 SUBJECTIVE: The patient is seen earlier this morning. The patient in no acute distress; however, chronically ill, debilitated, still very weak. PHYSICAL EXAMINATION VITAL SIGNS: Temperature is 97, blood pressure is 99/60 and respiratory rate of 18. HEENT: Unremarkable. NECK: Supple. LUNGS: Have decreased breath sounds. HEART: Normal S1 and S2. ABDOMEN: Soft and nontender. LABORATORY DATA: Reveals the patient's white count is 5.6 and hemoglobin of 8. Chemistries are noted. Procalcitonin is 0.17. Urinalysis is noted. Serology is noted. Microbiology reveals sputum for Staphylococcus aureus and yeast. Blood cultures no growth. Nares MRSA is negative. ASSESSMENT AND PLAN: He is a 78-year-old male with end-stage, who was seen early this morning, initially admitted with severe sepsis, healthcare-associated pneumonia with acute kidney injury, today is day #4 of antibiotics and be discharged on p.o. doxycycline to complete 4 to 7 days and supportive care for this patient who is end-stage. Jean Fuller MD
--- NOTE | 2019-01-28 04:24 | DS ---
HISTORY OF PRESENT ILLNESS: The patient was seen and examined, I did review the note of the medical assistant ob gyn and I do agree with it. I was involved in the plan of care and discharge planning. The patient was initially admitted to the hospital because of sepsis secondary to healthcare-associated pneumonia. He had history of stage IV lung CA and bilateral PleurX catheters for pleural effusion. [facility] to [facility] treatment. The patient has coronary artery disease, but stable. He has atrial fibrillation and he is not on anticoagulation. He is going to finish his antibiotics and he was given oral antibiotics to complete. The patient currently is feeling well. He is discharged to follow up as an outpatient with his primary care doctor. CONDITION: Stable. ACTIVITIES: Increase as tolerated. Obinna Carey MD
== END 2019-01-27 14:56 | disposition home or self-care (01) | DRG 871 ==
LOC: ED 17:19 → ERH 20:02 → 5RNO 22:08
PROVIDERS: ADMIT Internal Medicine Nephrology; ATTEND Internal Medicine Nephrology
DX: A41.9 Sepsis, unspecified organism (principal); J18.9 Pneumonia, unspecified organism; N17.9 Acute kidney failure, unspecified; C34.90 Malignant neoplasm of unspecified part of unspecified bronchus or lung; J90 Pleural effusion, not elsewhere classified; R65.20 Severe sepsis without septic shock; N40.0 Benign prostatic hyperplasia without lower urinary tract symptoms; N18.9 Chronic kidney disease, unspecified; D50.9 Iron deficiency anemia, unspecified; D72.819 Decreased white blood cell count, unspecified; E87.5 Hyperkalemia; E78.5 Hyperlipidemia, unspecified; H91.92 Unspecified hearing loss, left ear; I13.10 Hypertensive heart and chronic kidney disease without heart failure, with stage 1 through stage 4 chronic kidney disease, or unspecified chronic kidney disease; I25.10 Atherosclerotic heart disease of native coronary artery without angina pectoris; I48.2 Chronic atrial fibrillation; J43.9 Emphysema, unspecified; K59.00 Constipation, unspecified; Y95 Nosocomial condition; Z79.82 Long term (current) use of aspirin; Z86.19 Personal history of other infectious and parasitic diseases; Z87.891 Personal history of nicotine dependence; Z95.5 Presence of coronary angioplasty implant and graft